=== PATIENT | male | born 1950 | race Caucasian/White ===

== ENCOUNTER 2019-06-22 14:19 | Outpatient (CLI) | payer MEDICARE, BC ==
--- NOTE | 2019-06-22 15:40 | MRI ---
MRI Lumbar Spine Noncontrast: HISTORY: Low back pain. COMPARISON: None FINDINGS: The visualized retroperitoneal structures demonstrate a normal appearance. Conus medullaris is normal in morphology and terminates at the L1-2 level. There is right convex scoliosis thoracolumbar spine. Prominent degenerative changes are present at th e L2-3 level. T12-L1 level: There is a mild broad-based disc osteophyte complex which results in effacement of the ventral aspect of the thecal sac. There is mild right-sided neural foraminal narrowing. The left neural foramen is patent. L1-2: There is a mild broad-based disc osteophyte complex and facet hypertrophic changes on the left. There is mild effacement of the ventral aspect of the thecal sac. There is mild left-sided neural foraminal narrowing. The right neural foramen is patent. L2-3: There is loss of intervertebral disc height and minimal endplate degenerative changes. Broad-ba sed disc osteophyte complex is present. There are mild facet hypertrophic changes and ligamentous thickening. There is mild generalized narrowing of the central spinal canal. Prominent endplate degen erative changes are seen at this level. The right neural foramen is patent, but there is mild left-sided neural foraminal narrowing. L3-4: There is loss of intervertebral disc height. There is slight retrolisthesis of L3 on L4. Mild b road-based disc osteophyte complex is present. There are mild facet hypertrophic changes noted. Mild bilateral neural foraminal narrowing is present. L4-5: There is a broad-based disc osteophyte complex with facet hypertrophic changes. Central spinal canal and left neural foramen are patent. There is [id number] right-sided neural foraminal narrowing present primarily related to the facet hypertrophic changes. Tiny subcentimeter synovial cy st is seen posterior to the right-sided facet joints at this level. L5-S1: Mild broad-based disc bulge is present. There are facet hypertrophic changes greater on the ri ght with fluid signal intensity seen in the facet joints at this level. The left neural foramen is patent, but there is mild right-sided neural foraminal narrowing. 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 IMPRESSION: Right convex scoliosis of the thoracolumbar spine with multilevel degenerative changes seen in the stephanie mbar spine with prominent endplate degenerative changes at the L2-3 level.
== END 2019-06-22 14:20 | disposition home or self-care (01) ==
LOC: BICMRI 14:19
PROVIDERS: ATTEND Family Medicine
DX: M54.5 Low back pain (principal); M41.85 Other forms of scoliosis, thoracolumbar region; M47.816 Spondylosis without myelopathy or radiculopathy, lumbar region
CPT/HCPCS: 72148

== ENCOUNTER 2019-09-20 12:17 | Outpatient (CLI) | payer MEDICARE, BC ==
--- NOTE | 2019-09-20 13:47 | MRI ---
MR OF THE THORACIC SPINE WITHOUT CONTRAST INDICATION: TECHNIQUE: Multiplanar multisequence MR images were obtained of the thoracic spine without contrast. Spine count series was provided. COMPARISON: None FINDINGS: Bone marrow signal intensity: Normal Spinal alignment: Normal Spinal cord: Normal signal intensity and contour. Paravertebral soft tissues: Normal Vertebral levels: T1-T2: No appreciable central canal or neural foraminal narrowing is evident. T2-T3: No appreciable central canal or neural foraminal narrowing. T3-T4: No appreciable central canal or neural foraminal narrowing.. T4-T5: No appreciable central canal or neural foraminal narrowing. T5-T6: No appreciable central canal or neural foraminal narrowing. T6-T7: No appreciable central canal or neural foraminal narrowing. T7-T8: No appreciable central canal or neural foraminal narrowing. T8-T9: No appreciable central canal or neural foraminal narrowing. T9-T10: No appreciable central canal or neural foraminal narrowing. T10-T11: No appreciable central canal or neural foraminal narrowing. T11-T12: No appreciable central canal or neural foraminal narrowing. T12-L1: No appreciable central canal or neural foraminal narrowing. Additional findings: None. IMPRESSION: 1. Normal MR of the thoracic spine.
== END 2019-09-20 12:18 | disposition home or self-care (01) ==
LOC: BICMRI 12:17
PROVIDERS: ATTEND Anesthesiology Pain Medicine
DX: M54.14 Radiculopathy, thoracic region (principal)
CPT/HCPCS: 72146

== ENCOUNTER 2023-07-14 13:59 | Outpatient (CLI) | payer MEDICARE, BC | END 2023-07-14 14:00 | disposition home or self-care (01) | LOC: MRI 13:59 | PROVIDERS: ATTEND Nurse Practitioner Family | DX: M47.816 Spondylosis without myelopathy or radiculopathy, lumbar region (principal); M48.062 Spinal stenosis, lumbar region with neurogenic claudication | CPT/HCPCS: 72148 ==